=== PATIENT | female | born 1985 ===

== ENCOUNTER 2016-07-08 04:35 | Inpatient (IN) | payer MEDICAID ==
[~2016-07-08] VITALS: Ht 162.6 cm
--- NOTE | ~2016-07-08 | OR ---
[facility] AGE: 31 Y [address] ROOM: [place] [id number] LOCATION: GOBS ADMIT DATE: 07/08/2016 OR/Procedure Report DISCHARGE DATE: FAMILY PHYSICIAN: Sarai Grant MD ATTENDING PHYSICIAN: Sarai Grant SURGEON: Db Ortiz MD NEEDLE POLISHER: DATE OF PROCEDURE: 07/08/2016 PREOPERATIVE DIAGNOSES: 1. Term intrauterine at 39 weeks and 1 day. 2. Prior history of preeclampsia. 3. Hypertension. 4. GBS positive. POSTOPERATIVE DIAGNOSES: 1. Term intrauterine at 39 weeks and 1 day. 2. Prior history of preeclampsia. 3. Hypertension. 4. GBS positive. PROCEDURE PERFORMED: Spontaneous vaginal delivery. ANESTHESIA: None. ESTIMATED BLOOD LOSS: 300 mL. INDICATIONS: The patient is a 31-year-old, G3, P2-0-0-2, who presents to Labor and Delivery in active labor. Her has been complicated by hypertension and also history of preeclampsia. The patient progressed normally through labor and was found to be complete. FINDINGS: Male , score of 8 and 9. Weight of 8 pounds 13 ounces. Cord blood was drawn. Intact placenta with 3-vessel cord. No cervical or vaginal lacerations, mild midline second-degree perineal laceration. DESCRIPTION OF PROCEDURE: The patient was found to have been complete when she presented to the emergency department. The patient was rushed immediately to Labor and Delivery, and I entered the room just as the head was . head was delivered with expulsive effort over an intact perineum. No nuchal cord was noted. The rest of the fetus was then delivered and also blood clots were noted as the was coming out. Cord was clamped and cut, and the was handed to the waiting nurse. Cord blood was drawn. The placenta was delivered spontaneously intact with some residual placenta noted and this was grabbed and removed from the os of the cervix without difficulty. The [facility] AGE: 31 Y [address] ROOM: [place] [address] LOCATION: GOBS ADMIT DATE: 07/08/2016 OR/Procedure Report DISCHARGE DATE: FAMILY PHYSICIAN: Sarai Grant MD ATTENDING PHYSICIAN: Sarai Grant cervix and vagina were noted to be free of lacerations, and there was a mild midline second-degree perineal laceration and that was repaired with 3-0 Vicryl. COMPLICATIONS: None. CONDITION: Mother stable in room. PATHOLOGY: Placenta. PLAN: The patient again is GBS positive, so we will monitor both the child and the mother for any fevers. We will send the placenta to pathology. MD ALEX CLINTON/jaden /[id number] d: 07/08/16636 t: 07/13/162023, OPERATIVE SUMMARY
[2016-07-08 05:27] LABS: BASOPHIL % 0.2 %; EOSINOPHIL # 0.1 K/uL (0.0-0.5); EOSINOPHIL % 0.4 %; HEMATOCRIT 35.7 % (33.0-46.0); HEMOGLOBIN 12.3 g/dL (11.0-15.0); IMMATURE GRANULOCYTE # 0.1 K/uL (0.0-0.3); IMMATURE GRANULOCYTE % 0.7 %; LYMPHOCYTE % 18.2 %; MCH 30.6 pg (27.0-34.0); MCHC 34.5 gm/dL (32.0-36.5); MCV 88.8 fl (83.0-98.0); MONOCYTE # 1.2 K/uL (0.0-1.0); MPV 9.1 fl (9.4-12.4); NEUTROPHIL # (ANC) 12.2 K/uL (1.8-7.8); NEUTROPHIL % 73.5 %; NRBC % 0 /100WBC (0-0.00); PLATELET COUNT 347 K/uL (150-450); RBC 4.02 M/uL (3.50-5.50); RDW-CV 12.6 % (11.9-14.6)
[2016-07-08 05:28] LABS: WBC 16.7 K/uL (4.0-11.0)
[2016-07-08 06:38] LABS: ALBUMIN 2.4 gm/dL (3.5-5.0); ALK PHOS 165 IU/L (33-138); ALT 18 IU/L (12-78); ANION GAP 12.2 (10.0-19.0); AST 16 IU/L (10-40); BLOOD UREA NITROGEN 9 mg/dL (6-24); CALCIUM 8.6 mg/dL (8.5-10.5); CHLORIDE 105 mMol/L (96-110); CO2 24 mMol/L (22-32); CREATININE 0.6 mg/dL (0.5-1.1); ESTIMATED GFR (MDRD EQUATION) > 60; POTASSIUM 4.2 mMol/L (3.7-5.1); SODIUM 137 mMol/L (135-145); TOTAL BILIRUBIN 0.2 mg/dL (0.0-1.5); TOTAL PROTEIN 6.3 g/dL (6.0-8.4)
[2016-07-08] MEDS ORDERED: PRENATAL 1+1)(P1 TAB PO (07:49)
[2016-07-09 05:03] LABS: BASOPHIL % 0.3 %; EOSINOPHIL # 0.2 K/uL (0.0-0.5); EOSINOPHIL % 1.3 %; HEMOGLOBIN 9.6 g/dL (11.0-15.0); IMMATURE GRANULOCYTE # 0.1 K/uL (0.0-0.3); IMMATURE GRANULOCYTE % 0.9 %; LYMPHOCYTE # 3.2 K/uL (0.8-4.0); LYMPHOCYTE % 27.1 %; MCH 30.9 pg (27.0-34.0); MCHC 33.9 gm/dL (32.0-36.5); MONOCYTE # 0.8 K/uL (0.0-1.0); MONOCYTE % 6.6 %; MPV 8.7 fl (9.4-12.4); NEUTROPHIL # (ANC) 7.6 K/uL (1.8-7.8); NEUTROPHIL % 63.8 %; NRBC % 0 /100WBC (0-0.00); PLATELET COUNT 290 K/uL (150-450); RBC 3.11 M/uL (3.50-5.50); WBC 11.9 K/uL (4.0-11.0)
[2016-07-09 05:04] LABS: HEMATOCRIT 28.3 % (33.0-46.0)
[2016-07-10] MEDS ORDERED: SURFAK240 MG PO (10:08)
[2016-07-10] MEDS ORDERED: PERCOCET 5-3251 EACH PO ×2 (10:09→10:10)
[2016-07-10] MEDS ORDERED: MOTRIN800 MG PO (10:09)
== END 2016-07-10 14:30 | disposition disaster alternative care site (69) | DRG 774 ==
LOC: GOBS 04:35 → GOBM 04:35 → GOBS 04:57
PROVIDERS: Family Medicine; ADMIT Family Medicine
PROC: 10E0XZZ Delivery of Products of Conception, External Approach (ICD-10-PCS; principal; 2016-07-08)
PROC: 0KQM0ZZ Repair Perineum Muscle, Open Approach (ICD-10-PCS; principal; 2016-07-08)
DX: O10.92 Unspecified pre-existing hypertension complicating childbirth (principal); O99.824 Streptococcus B carrier state complicating childbirth; O70.1 Second degree perineal laceration during delivery; Z3A.39 39 weeks gestation of pregnancy; Z37.0 Single live birth
CPT/HCPCS: J2590; J7120